=== PATIENT | female | born 1980 | race Caucasian/White ===

== ENCOUNTER → 2021-05-16 | Outpatient (CLI) | payer OTHER | LOC: EXRD 05-09 14:30 | DX: R59.1 Generalized enlarged lymph nodes (principal) | CPT/HCPCS: 76536 ==

== ENCOUNTER → 2021-10-21 | Outpatient (CLI) | payer OTHER | LOC: RAD 12:34 | DX: R05.9 Cough, unspecified (principal) | CPT/HCPCS: 71046 ==